=== PATIENT | female | born 1990 | race Caucasian/White ===

== ENCOUNTER 2017-08-29 12:17 | Emergency (ER) | payer OTHER ==
[~2017-08-29] VITALS: Ht 160 cm; Wt 60.8 kg
[2017-08-29 12:24] VITALS: Ht 160 cm; Wt 60.8 kg
[2017-08-29 13:44] LABS: BASOPHIL % 0.3 % (0-2); PLATELET COUNT 376 x10^3mcL (130-400)
[2017-08-29 13:45] LABS: RED CELL DISTRIBUTION WIDTH 15.4 % (11.5-14.5)
[2017-08-29 13:51] LABS: CALCIUM 9.1 mg/dL (8.5-10.1); CARBON DIOXIDE 27.9 mmol/L (21-32); CHLORIDE SERUM 105 mmol/L (98-107); CREATININE SERUM 0.7 mg/dL (0.6-1.0); GFR1 > 60 mL/min; GLUCOSE SERUM 89 mg/dL (74-106); POTASSIUM SERUM 4.1 mmol/L (3.5-5.1); SODIUM SERUM 142 mmol/L (136-145)
[2017-08-29 13:56] LABS: ALBUMIN 3.9 g/dL (3.4-5.0); ALKALINE PHOSPHATASE 53 U/L (46-116); ALT/SGPT 21 U/L (14-59); AMYLASE 73 U/L (25-115); AST/SGOT 17 U/L (15-37); BILIRUBIN TOTAL 0.42 mg/dL (0.20-1.00); LIPASE 174 IU/L (73-393); TOTAL PROTEIN, SERUM 7.6 g/dL (6.4-8.2)
[2017-08-29 16:13] VITALS: BP 108/64
== END 2017-08-29 16:13 | disposition home or self-care (01) ==
LOC: ED 12:17
PROVIDERS: Specialist
DX: R10.32 Left lower quadrant pain (principal); N73.9 Female pelvic inflammatory disease, unspecified
CPT/HCPCS: 83880; 87491; 87591; J1170; J1885; J2405; J7030; Q9967